=== PATIENT | male | born 1940 | race Caucasian/White ===

== ENCOUNTER 2021-02-03 13:18 | Emergency (ER) | payer MEDICARE ==
[~2021-02-03 13:18] MED LIST: FLEXERIL 5 MG PO; NORCO 5-325 TA1 EACH PO; PREDNISONE 50 M50 MG PO; Voltaren Gel 1 % TOP
[2021-02-03] MEDS ORDERED: HYDROCODON-ACE1 EAC4 PO (15:30)
[2021-02-03] MEDS ORDERED: VALACYCLOVIR1000 MG PO (15:30)
== END 2021-02-03 15:50 | disposition home or self-care (01) ==
LOC: ER1 13:18
DX: B02.9 Zoster without complications (principal); E11.9 Type 2 diabetes mellitus without complications; Z95.1 Presence of aortocoronary bypass graft; Z86.79 Personal history of other diseases of the circulatory system; Z88.8 Allergy status to other drugs, medicaments and biological substances
CPT/HCPCS: 99283